=== PATIENT | male | born 1995 | race American Indian/Alaskan Native ===

== ENCOUNTER 2018-11-16 10:04 | Emergency (ER) | payer OTHER ==
[2018-11-16 10:10] VITALS: BP 137/86
--- NOTE | 2018-11-16 11:19 | Emergency Department Report ---
ED General Adult HPI - General Chief complaint: Skin Rash Stated complaint: RASH Time Seen by Provider: 11/16/18 11:18 Source: patient Mode of arrival: Ambulatory Limitations: No Limitations - History of Present Illness Initial comments: is a 23-year-old male no significant past medical history who presents with right leg rash has been going on for 2 weeks. Patient states the rash is a burning type of pain as a 9 out of 10 as achy and nothing makes it better and nothing makes it worse rash blisters. Patient is concerned that he may have shingles. Patient is unaware of these have been diagnosed with chickenpox. He states that he feels that he needs treatment for his shingles. - Related Data Previous Rx's Medication Instructions Recorded Last Taken Type Acyclovir [Zovirax Tab] 800 mg PO Q4H #60 tab 11/16/18 Unknown Rx Allergies Allergy/AdvReac Type Severity Reaction Status Date / Time No Known Allergies Allergy Unverified 11/16/18 10:05 ED Review of Systems ROS: Stated complaint: RASH Other details as noted in HPI Constitutional: denies: chills, fever Eyes: denies: eye pain, eye discharge, vision change ENT: denies: ear pain, throat pain Respiratory: denies: cough, shortness of breath, wheezing Cardiovascular: denies: chest pain, palpitations Endocrine: no symptoms reported Gastrointestinal: denies: abdominal pain, nausea, diarrhea Genitourinary: denies: urgency, dysuria Musculoskeletal: denies: back pain, joint swelling, arthralgia Skin: rash. denies: lesions Neurological: denies: headache, weakness, paresthesias Psychiatric: denies: anxiety, depression Hematological/Lymphatic: denies: easy bleeding, easy bruising ED Past Medical Hx - Past Medical History Previous Medical History?: No - Surgical History Additional Surgical History: left ankle - Medications Home Medications: Home Medications Medication Instructions Recorded Confirmed Last Taken Type Acyclovir [Zovirax Tab] 800 mg PO Q4H #60 tab 11/16/18 Unknown Rx ED Physical Exam - General Limitations: No Limitations General appearance: alert, in no apparent distress - Head Head exam: Present: atraumatic, normocephalic - Eye Eye exam: Present: normal appearance - ENT ENT exam: Present: mucous membranes moist - Neck Neck exam: Present: normal inspection - Respiratory Respiratory exam: Present: normal lung sounds bilaterally. Absent: respiratory distress - Cardiovascular Cardiovascular Exam: Present: regular rate, normal rhythm. Absent: systolic murmur, diastolic murmur, rubs, gallop - GI/Abdominal GI/Abdominal exam: Present: soft, normal bowel sounds - Rectal Rectal exam: Present: deferred - Extremities Exam Extremities exam: Present: other (vescular rash with old healed scars tender to palpation ) - Back Exam Back exam: Present: normal inspection - Neurological Exam Neurological exam: Present: alert, oriented X3 - Psychiatric Psychiatric exam: Present: normal affect, normal mood - Skin Skin exam: Present: warm, dry, intact, normal color. Absent: rash ED Course Vital Signs 11/16/18 10:09 Temperature 97.7 F Pulse Rate 84 Respiratory 20 Rate Blood Pressure 137/86 [Right] O2 Sat by Pulse 98 Oximetry ED Medical Decision Making - Medical Decision Making Cdx: Shingles rash ddx: cellulitis, viral [place] Additional verbal discharge instructions were given patient agrees with plan. Critical care attestation.: If time is entered above; I have spent that time in minutes in the direct care of this critically ill patient, excluding procedure time. ED Disposition Clinical Impression: Shingles rash Qualifiers: Herpes zoster complications: without complications Qualified Code(s): B02.9 - Zoster without complications Disposition: -01 TO HOME OR SELFCARE Is pt being admited?: No Does the pt Need Aspirin: No Condition: Stable Instructions: Herpes Zoster (ED) Prescriptions: Acyclovir [Zovirax Tab] 800 mg PO Q4H #60 tab Referrals: ELLE ESPINO MD [Staff Physician] - 3-5 Days
== END 2018-11-16 12:10 | disposition home or self-care (01) ==
LOC: ED 10:04
DX: B02.9 Zoster without complications (principal)

== ENCOUNTER 2019-08-30 15:11 | Emergency (ER) | payer SELFPAY ==
--- NOTE | 2019-08-30 15:19 | Emergency Department Report ---
Blank Doc - Documentation Documentation: 24-year-old male that presents with left eye pain and irritation x2 days. This initial assessment/diagnostic orders/clinical plan/treatment(s) is/are subject to change based on patient's health status, clinical progression and re- assessment by fellow clinical providers in the ED. Further treatment and workup at subsequent clinical providers discretion. Patient/guardians urged not to elope from the ED as their condition may be serious if not clinically assessed and managed. Initial orders include: 1- Patient sent to [facility] for further evaluation and treatment 2- visual exam 3- tonopen/raymundo lamp exam to be done
[2019-08-30 15:21] VITALS: BP 129/91
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
== END 2019-08-30 21:13 | disposition home or self-care (01) ==
LOC: ED 15:11
DX: H00.024 Hordeolum internum left upper eyelid (principal); F17.200 Nicotine dependence, unspecified, uncomplicated; F12.10 Cannabis abuse, uncomplicated; Z79.899 Other long term (current) drug therapy
CPT/HCPCS: 99282

== ENCOUNTER 2020-06-26 14:53 | Emergency (ER) | payer SELFPAY ==
[2020-06-26 15:26] VITALS: BP 139/86
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
== END 2020-06-26 16:29 | disposition home or self-care (01) ==
LOC: ED 14:53
DX: H00.036 Abscess of eyelid left eye, unspecified eyelid (principal); F17.200 Nicotine dependence, unspecified, uncomplicated; F12.10 Cannabis abuse, uncomplicated
CPT/HCPCS: 99281

== ENCOUNTER 2020-10-17 18:02 | Emergency (ER) | payer SELFPAY ==
[2020-10-17 18:09] VITALS: BP 137/80
--- NOTE | 2020-10-17 18:39 | Emergency Department Report ---
ED Rash HPI - HPI Chief Complaint: Skin Rash Stated Complaint: SPIDER BITE Time Seen by Provider: 10/17/20 18:10 Duration: 2 Days Location: Lower Extremities Rash Symptoms: No Itching, No Facial Swelling, No Tongue/Oral Swelling, No Breathing Difficulties, No Choking Sensation, No Wheezing/Dyspnea, No Peeling, No Blistering, No Fever, No Lightheaded, No Malaise, No Myalgias Severity: mild Other History: This is a 25-year-old male with no prior medical history presents ED complaining of left inner thigh pain and swelling x2 days. Patient states yesterday he noticed small bump in his left inner thigh. Patient states today he noticed it was a little bit swollen and he had some pain. Patient states that he does notice her head and thinks he got bit by a spider of some sort. Patient did not see any spider. Patient denies fever/chills/nausea vomiting or any other symptoms ED Review of Systems ROS: Stated complaint: SPIDER BITE Other details as noted in HPI Comment: All other systems reviewed and negative ED Past Medical Hx - Past Medical History Previous Medical History?: No - Surgical History Past Surgical History?: Yes Additional Surgical History: left ankle - Social History Smoking Status: Current Every Day Smoker Substance Use Type: Alcohol, Marijuana - Medications Home Medications: Home Medications Medication Instructions Recorded Confirmed Last Taken Type Acyclovir [Zovirax Tab] 800 mg PO Q4H #60 tab 11/16/18 Unknown Rx Erythromycin [Erythromycin Ophth 1 cm OU Q4H 10 Days #1 tube 08/30/19 Unknown Rx Oint] cephALEXin [Keflex] 500 mg PO Q8HR 7 Days #21 cap 06/26/20 Unknown Rx Clindamycin [Clindamycin CAP] 300 mg PO Q8H #21 cap 10/17/20 Unknown Rx Ibuprofen [Motrin 800 MG tab] 800 mg PO Q8HR PRN #21 tablet 10/17/20 Unknown Rx Rash Exam - Exam General: Vital signs noted. No distress. Alert and acting appropriately. HEENT: No Periorbital Edema, No Conjuctival Injection, No Chemosis, No Perioral Edema Lungs: Yes Good Air Exchange (Normal Breath Sounds), No Wheezes, No Ronchi, No Stridor, No Cough, No Labored Respirations, No Retractions, No Use of Accessory Muscles, No Other Abnormal Lung Sounds Heart: Yes Regular, No Murmur Skin: Yes Tenderness, Yes Other (Small 1 cm, nonfluctuant, raised lesion with the head, close, no pus drainage.), No Urticarial Rash, No Maculopapular Rash, No Morbilliform rash, No Bulla(e), No Excoriations, No Weeping, No Erythema Other: Positive: Abdomen Normal, Neurologic Normal, Musculoskeletal Normal ED Course Vital Signs 10/17/20 18:08 Temperature 98.5 F Pulse Rate 105 H Respiratory 18 Rate Blood Pressure 137/80 [Right] O2 Sat by Pulse 99 Oximetry ED Medical Decision Making - Medical Decision Making 25-year-old male presents with insect bite to the left inner thigh. Discussed antibiotic therapy. Discussed Motrin/naproxen as needed for pain. Vital signs are normal he is in no acute distress. Patient understand instructions and will follow-up. Critical care attestation.: If time is entered above; I have spent that time in minutes in the direct care of this critically ill patient, excluding procedure time. ED Disposition Clinical Impression: Insect bite Disposition: - TO HOME OR SELFCARE Is pt being admited?: No Does the pt Need Aspirin: No Condition: Stable Instructions: Insect Bite, Adult Additional Instructions: Make sure to follow up with the primary care physician as discussed. Take all your medications as you've been prescribed. If you have any worsening symptoms or develop new symptoms please return to ED immediately. Prescriptions: Clindamycin [Clindamycin CAP] 300 mg PO Q8H #21 cap Ibuprofen [Motrin 800 MG tab] 800 mg PO Q8HR PRN #21 tablet PRN Reason: pain Referrals: [facility] [Outside] - 3-5 Days [facility] [Outside] - 3-5 Days [facility] [Outside] - 3-5 Days Forms: Work/School Release Form(ED) Time of Disposition: 18:48
== END 2020-10-17 19:50 | disposition home or self-care (01) ==
LOC: ED 18:02
DX: S71.152A Open bite, left thigh, initial encounter (principal); F12.90 Cannabis use, unspecified, uncomplicated; F17.200 Nicotine dependence, unspecified, uncomplicated; Z79.899 Other long term (current) drug therapy; Z98.890 Other specified postprocedural states; W57.XXXA Bitten or stung by nonvenomous insect and other nonvenomous arthropods, initial encounter; Y93.89 Activity, other specified; Y92.89 Other specified places as the place of occurrence of the external cause; Y99.8 Other external cause status
CPT/HCPCS: 99281

== ENCOUNTER 2021-03-06 01:12 | Emergency (ER) | payer SELFPAY ==
[2021-03-06] MEDS ORDERED: IBUPROFEN 600 MG TAB PO ONE (08:35)
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
[2021-03-06 09:12] LABS: Basophils % (Auto) 0.5 % (0.0-1.8); Eosinophils # (Auto) 0.2 K/mm3 (0.0-0.4); Eosinophils % (Auto) 3.8 % (0.0-4.3); Hematocrit 42.9 % (35.5-45.6); Hemoglobin 14.9 gm/dl (11.8-15.2); Lymphocytes # (Auto) 1.8 K/mm3 (1.2-5.4); Lymphocytes % (Auto) 43.7 % (13.4-35.0); Mean Corpuscular HGB Conc 35 % (32-34); Mean Corpuscular Volume 88 fl (84-94); Monocytes # (Auto) 0.5 K/mm3 (0.0-0.8); Monocytes % (Auto) 12.9 % (0.0-7.3); Platelet Count 300 K/mm3 (140-440); Red Blood Count 4.89 M/mm3 (3.65-5.03); Red Cell Distribution Width 15.2 % (13.2-15.2)
--- NOTE | 2021-03-06 09:14 | XRay Report ---
CHEST 2 VIEWS INDICATION / CLINICAL INFORMATION: SOB. Dyspnea FINDINGS: SUPPORT DEVICES: None. HEART / MEDIASTINUM: No significant abnormality. LUNGS / PLEURA: No significant pulmonary or pleural abnormality. No pneumothorax. ADDITIONAL FINDINGS: No significant additional findings. IMPRESSION: 1. No acute findings. Signer Name: Roberto Carlos Mcdonough MD Signed: 03/06/2021 9:10 AM Workstation Name: [id number]
[2021-03-06 09:31] LABS: Bacteria,Urine 1+ /HPF (Negative); Bilirubin,Urine NEG (Negative); Blood,Urine NEG (Negative); Color,Urine Yellow (Yellow); Mucus,Urine FEW /HPF; Protein,Urine <15 mg/dL mg/dL (Negative); Urobilinogen,Urine < 2.0 mg/dL (<2.0)
[2021-03-06 09:37] LABS: Benzodiazepines Screen,Urine Negative; Cannabinoid Screen,Urine Negative; Cocaine Screen,Urine Negative; Methadone Screen,Urine Negative; Opiate Screen,Urine Negative
[2021-03-06 10:13] VITALS: BP 124/89
[2021-03-06 10:13] LABS: Alanine Aminotransferase 20 units/L (7-56); Albumin 4.7 g/dL (3.9-5); BUN/Creatinine Ratio 9; Blood Urea Nitrogen 8 mg/dL (9-20); Calcium 10.5 mg/dL (8.4-10.2); Hemolysis Index 6
[2021-03-06 10:15] LABS: Amphetamine Screen,Urine PRESUMPTIVE POSITIVE
--- NOTE | 2021-03-07 10:17 | Electrocardiograph Report ---
[facility] Test Date: 2021-03-06 Test Time: 10:06:18 Pat Name: ANIA LINDSEY Department: Room: Gender: M Evening Anchor: FARZANA : 1995 Requested By: ACE HALL Order Number: [id number] Reading MD: Camden Dugan Measurements Intervals [place] Rate: 67 P: 46 SD: 200 QRS: 45 QRSD: 96 T: 21 QT: 389 QTc: 411 Interpretive Statements Sinus rhythm Consider anteroseptal infarct No previous ECG available for comparison Electronically Signed On 03-07-2021 10:16:56 EDT by Camden Dugan
== END 2021-03-06 10:43 | disposition home or self-care (01) ==
LOC: ED 01:12
DX: R07.9 Chest pain, unspecified (principal); R06.02 Shortness of breath; R53.1 Weakness; I10 Essential (primary) hypertension; F19.10 Other psychoactive substance abuse, uncomplicated
CPT/HCPCS: 36415; 71046; 80053; 80307; 81001; 82550; 83735; 84484; 85025; 93005; 99284

== ENCOUNTER 2021-05-09 17:12 | Emergency (ER) | payer SELFPAY ==
[2021-05-09 21:00] VITALS: BP 146/91
--- NOTE | 2021-05-09 21:07 | Emergency Department Report ---
ED General Adult HPI - General Chief complaint: Dental/Oral Stated complaint: TOOTH PAIN Time Seen by Provider: 05/09/21 20:59 Source: patient Mode of arrival: Ambulatory Limitations: No Limitations - History of Present Illness Initial comments: 26-year-old male patient presents to the emergency department with complaints of dental pain for 2 weeks. No preceding fall, trauma, or injury. Pain is localized to the left upper molar. He has been taking Motrin for pain. He has not been evaluated by a dentist. He is not currently scheduled to see a den tist. Symptoms are unchanged today. Denies fever, chills, dysphagia, shortness of breath, voice changes, facial swelling. Denies all other complaints at this time. - Related Data Previous Rx's Medication Instructions Recorded Last Taken Type Acyclovir [Zovirax Tab] 800 mg PO Q4H #60 tab 11/16/18 Unknown Rx Erythromycin [Erythromycin Ophth 1 cm OU Q4H 10 Days #1 tube 08/30/19 Unknown Rx Oint] cephALEXin [Keflex] 500 mg PO Q8HR 7 Days #21 cap 06/26/20 Unknown Rx Clindamycin [Clindamycin CAP] 300 mg PO Q8H #21 cap 10/17/20 Unknown Rx Ibuprofen [Motrin 800 MG tab] 800 mg PO Q8HR PRN #21 tablet 03/06/21 Unknown Rx Naproxen 500 mg PO BID #20 tablet 05/09/21 Unknown Rx Penicillin Vk [Veetids TAB] 500 mg PO QID 7 Days tablet 05/09/21 Unknown Rx Allergies Allergy/AdvReac Type Severity Reaction Status Date / Time No Known Allergies Allergy Verified 06/26/20 15:23 ED Review of Systems ROS: Stated complaint: TOOTH PAIN Other details as noted in HPI Other: GENERAL: Negative for fever. ENT: Positive for dental pain. CARDIOVASCULAR: Negative for chest pain. PULMONARY: Negative for shortness of breath. GASTROINTESTINAL: Negative for abdominal pain. MUSCULOSKELETAL: Negative for back pain. NEUROLOGICAL: Negative for headache. INTEGUMENTARY: Negative for rash. ED Past Medical Hx - Past Medical History Hx Hypertension: Yes - Surgical History Additional Surgical History: left ankle - Social History Smoking Status: Never Smoker Substance Use Type: None - Medications Home Medications: Home Medications Medication Instructions Recorded Confirmed Last Taken Type Acyclovir [Zovirax Tab] 800 mg PO Q4H #60 tab 11/16/18 Unknown Rx Erythromycin [Erythromycin Ophth 1 cm OU Q4H 10 Days #1 tube 08/30/19 Unknown Rx Oint] cephALEXin [Keflex] 500 mg PO Q8HR 7 Days #21 cap 06/26/20 Unknown Rx Clindamycin [Clindamycin CAP] 300 mg PO Q8H #21 cap 10/17/20 Unknown Rx Ibuprofen [Motrin 800 MG tab] 800 mg PO Q8HR PRN #21 tablet 03/06/21 Unknown Rx Naproxen 500 mg PO BID #20 tablet 05/09/21 Unknown Rx Penicillin Vk [Veetids TAB] 500 mg PO QID 7 Days tablet 05/09/21 Unknown Rx ED Physical Exam - General Limitations: No Limitations - Other Other exam information: General: Awake, appropriately interactive, no acute distress. Dental: Tenderness to palpation along left upper molar with minimal decay. Multiple dental caries. Oral mucosa is moist. The gingiva appear normal. No fluctuance or evidence of periapical abscess. Sublingual, submental, and submandibular spaces all soft, without edema. No evidence for maxillary or buccal space abscess. No trismus. Patient is speaking in full sentences and handling secretions without difficulty. Neck: Supple. Full range of motion intact. Cardiovascular: Normal peripheral perfusion. Pulmonary: No respiratory distress. Patient is speaking normally without use of accessory muscles. Skin: No apparent rashes or lesions. Neurological: No facial asymmetry. Speech is clear. Follows commands. Patient is alert and oriented. Musculoskeletal: Moves all four extremities spontaneously with normal range of motion. Psych: Cooperative. Appropriate mood and affect. ED Course Vital Signs 05/09/21 20:59 Temperature 98.6 F Pulse Rate 96 H Respiratory 20 Rate Blood Pressure 146/91 O2 Sat by Pulse 97 Oximetry ED Medical Decision Making - Medical Decision Making Differential diagnosis including but not limited to: dental abscess, Dakotah's angina, necrotizing gingivitis, dental caries Patient presents to the emergency department with complaints of ongoing dental pain for 2 weeks, unchanged today. He is afebrile, hemodynamically stable, no respiratory distress, speaking and handling secretions without difficulty. No clinical evidence to suggest airway obstruction or systemic infection warranting further diagnostic work-up on an emergent basis at this time. Patient will be discharged home with appropriate analgesics, short course of prophylactic antibiotics, and referred to dentist for close outpatient follow-up. Patient expressed understanding and is agreeable to plan of care. Strict return precautions provided. History, exam, diagnostic testing, and current condition do not suggest worrisome pathology to warrant further testing, continued ED treatment, admission, or surgical evaluation at this point. Given the low probability of a significant medical illness, it would be more likely to result in harm than benefit to perform further testing at this stage. Discussed findings, presumptive diagnosis, need for follow-up and specific signs/symptoms that should prompt immediate return to the emergency department. Instructions were explained in detail to the patient in addition to giving written discharge information. Patient expressed understanding and was given the opportunity to ask questions, all of which were satisfactorily answered prior to discharge home. BILLING/CODING: This patient encounter does not represent a certified medical emergency. Critical care attestation.: If time is entered above; I have spent that time in minutes in the direct care of this critically ill patient, excluding procedure time. ED Disposition Clinical Impression: Odontalgia Disposition: 01 HOME / SELF CARE / HOMELESS Is pt being admited?: No Does the pt Need Aspirin: No Condition: Stable Instructions: Diet and Dental Disease Additional Instructions: Take Tylenol every 4 hours as needed for pain. Take Naprosyn twice daily with food as needed for pain. Take Penicillin with food as directed. You must follow-up with a dentist for definitive management of ongoing dental pain. Call tomorrow to schedule an appointment. See referral information below. Return to the emergency department immediately for new or worsening symptoms. Specifically, return to the emergency department immediately for fever, worsening pain, difficulty swallowing, difficulty breathing, difficulty speaking, or any other concerns. Prescriptions: Naproxen 500 mg PO BID #20 tablet Penicillin Vk [Veetids TAB] 500 mg PO QID 7 Days tablet Referrals: [facility] [Outside] - 3-5 Days [facility] [Outside] - 3-5 Days Time of Disposition: 21:08
== END 2021-05-09 21:30 | disposition home or self-care (01) ==
LOC: ED 17:12
DX: K08.89 Other specified disorders of teeth and supporting structures (principal); I10 Essential (primary) hypertension
CPT/HCPCS: 99282

== ENCOUNTER 2022-01-30 19:04 | Emergency (ER) | payer SELFPAY ==
[2022-01-31] MEDS ORDERED: IBUPROFEN 800 MG TAB PO ONE (03:59)
[2022-01-31] MEDS ORDERED: AMOXICILLIN 500 MG CAP PO ONE (03:59)
--- NOTE | 2022-01-31 04:30 | Emergency Department Report ---
ED General Adult HPI - General Chief complaint: Dental/Oral Stated complaint: TOOTHACHE Time Seen by Provider: 01/31/22 03:56 Source: patient Mode of arrival: Ambulatory Limitations: No Limitations - History of Present Illness Initial comments: Patient 26-year-old male who presents for dental pain x3 days. Patient has chronic history of dental caries. There is no fevers no chills no facial or gum swelling. There is no nausea no vomiting no ear or throat pain. Dental pain is rated at 5/10 sharp and achy. Pain is exacerbated by hot and cold stimuli. Pain is relieved by nothing tried. Patient advises he does not have a dentist. - Related Data Previous Rx's Medication Instructions Recorded Last Taken Type Acyclovir [Zovirax Tab] 800 mg PO Q4H #60 tab 11/16/18 Unknown Rx Erythromycin [Erythromycin Ophth 1 cm OU Q4H 10 Days #1 tube 08/30/19 Unknown Rx Oint] cephALEXin [Keflex] 500 mg PO Q8HR 7 Days #21 cap 06/26/20 Unknown Rx Clindamycin [Clindamycin CAP] 300 mg PO Q8H #21 cap 10/17/20 Unknown Rx Ibuprofen [Motrin 800 MG tab] 800 mg PO Q8HR PRN #21 tablet 03/06/21 Unknown Rx Naproxen 500 mg PO BID #20 tablet 05/09/21 Unknown Rx Penicillin Vk [Veetids TAB] 500 mg PO QID 7 Days tablet 05/09/21 Unknown Rx Amoxicillin [Trimox CAP] 500 mg PO Q8H 7 Days #21 capsule 01/31/22 Unknown Rx Ibuprofen [Motrin 800 MG tab] 800 mg PO Q8HR PRN #30 tablet 01/31/22 Unknown Rx Allergies Allergy/AdvReac Type Severity Reaction Status Date / Time No Known Allergies Allergy Verified 06/26/20 15:23 ED Review of Systems ROS: Stated complaint: TOOTHACHE Other details as noted in HPI Constitutional: denies: chills, fever Eyes: denies: eye pain, eye discharge, vision change ENT: dental pain. denies: ear pain, throat pain Respiratory: denies: cough, shortness of breath, wheezing Cardiovascular: denies: chest pain, palpitations Endocrine: no symptoms reported Gastrointestinal: denies: abdominal pain, nausea, vomiting, diarrhea Genitourinary: denies: urgency, dysuria Musculoskeletal: denies: back pain, joint swelling, arthralgia Skin: denies: rash, lesions Neurological: denies: headache, weakness, paresthesias Psychiatric: denies: anxiety, depression Hematological/Lymphatic: denies: easy bleeding, easy bruising ED Past Medical Hx - Past Medical History Hx Hypertension: Yes - Surgical History Additional Surgical History: left ankle - Social History Smoking Status: Never Smoker Substance Use Type: None - Medications Home Medications: Home Medications Medication Instructions Recorded Confirmed Last Taken Type Acyclovir [Zovirax Tab] 800 mg PO Q4H #60 tab 11/16/18 Unknown Rx Erythromycin [Erythromycin Ophth 1 cm OU Q4H 10 Days #1 tube 08/30/19 Unknown Rx Oint] cephALEXin [Keflex] 500 mg PO Q8HR 7 Days #21 cap 06/26/20 Unknown Rx Clindamycin [Clindamycin CAP] 300 mg PO Q8H #21 cap 10/17/20 Unknown Rx Ibuprofen [Motrin 800 MG tab] 800 mg PO Q8HR PRN #21 tablet 03/06/21 Unknown Rx Naproxen 500 mg PO BID #20 tablet 05/09/21 Unknown Rx Penicillin Vk [Veetids TAB] 500 mg PO QID 7 Days tablet 05/09/21 Unknown Rx Amoxicillin [Trimox CAP] 500 mg PO Q8H 7 Days #21 capsule 01/31/22 Unknown Rx Ibuprofen [Motrin 800 MG tab] 800 mg PO Q8HR PRN #30 tablet 01/31/22 Unknown Rx ED Physical Exam - General Limitations: No Limitations General appearance: alert - Head Head exam: Present: normocephalic, normal inspection - Eye Eye exam: Present: EOMI. Absent: conjunctival injection, nystagmus Pupils: Present: normal accommodation - ENT ENT exam: Present: mucous membranes moist, TM's normal bilaterally, normal external ear exam - Expanded ENT Exam Expanded Ear exam: Present: normal external inspection Teeth exam: Present: dental caries, fractured tooth # (16 mild erythema no gum swelling no facial swelling no focal abscess) Throat exam: Positive: other (Uvula midline airways patent no exudate no lesions). Negative: tonsillar erythema, tonsillomegaly, tonsillar exudate - Neck Neck exam: Present: normal inspection, full ROM. Absent: tenderness, lymphadenopathy - Respiratory Respiratory exam: Present: normal lung sounds bilaterally. Absent: respiratory distress, wheezes - Cardiovascular Cardiovascular Exam: Present: regular rate, normal rhythm, normal heart sounds. Absent: systolic murmur, diastolic murmur, rubs, gallop - GI/Abdominal GI/Abdominal exam: Present: soft, normal bowel sounds. Absent: distended, tenderness - Rectal Rectal exam: Present: deferred - Extremities Exam Extremities exam: Present: normal inspection, full ROM. Absent: tenderness - Back Exam Back exam: Present: normal inspection, full ROM. Absent: CVA tenderness (R), CVA tenderness (L) - Neurological Exam Neurological exam: Present: alert, oriented X3, CN II-XII intact - Expanded Neurological Exam Expanded Patient oriented to: Present: person, place, time Speech: Present: fluid speech Best Eye Response (Heidi): (4) open spontaneously Best Motor Response ([place]): (6) obeys commands Best Verbal Response (Heidi): (5) oriented [place] Total: 15 - Psychiatric Psychiatric exam: Present: normal affect, normal mood - Skin Skin exam: Present: warm, dry, intact, normal color. Absent: rash ED Course Vital Signs 01/30/22 19:04 Temperature 98.5 F Pulse Rate 92 H Respiratory 18 Rate Blood Pressure 130/88 [Right] O2 Sat by Pulse 98 Oximetry ED Medical Decision Making - Medical Decision Making This is straightforward infected dental caries plan DC to home with prescript ions. Follow-up with [facility] dental in 1 to 2 days. Return to emergency department should symptoms worsen. Patient verbalized agreement and understanding with discharge plan. Patient DC'd home in stable condition at this time. Critical care attestation.: If time is entered above; I have spent that time in minutes in the direct care of this critically ill patient, excluding procedure time. ED Disposition Clinical Impression: Dental caries Disposition: HOME / SELF CARE / HOMELESS Is pt being admited?: No Does the pt Need Aspirin: No Condition: Stable Instructions: Preventive Dental Care, Adult Additional Instructions: Take medications as prescribed, follow-up with your dentist in 2 to 3 days. Prescriptions: Ibuprofen [Motrin 800 MG tab] 800 mg PO Q8HR PRN #30 tablet PRN Reason: Pain Amoxicillin [Trimox CAP] 500 mg PO Q8H 7 Days #21 capsule Referrals: [facility] [Outside] - 3-5 Days [facility] [Provider Group] - 3-5 Days Forms: Work/School Release Form(ED) Time of Disposition: 04:35
[2022-01-31 05:06] VITALS: BP 116/74
== END 2022-01-31 05:03 | disposition home or self-care (01) ==
LOC: ED 19:04
DX: K02.9 Dental caries, unspecified (principal); I10 Essential (primary) hypertension; Z79.899 Other long term (current) drug therapy
CPT/HCPCS: 99282

== ENCOUNTER 2022-03-03 15:28 | Emergency (ER) | payer SELFPAY ==
[2022-03-03 17:49] VITALS: BP 126/77
--- NOTE | 2022-03-03 19:54 | XRay Report ---
CHEST 2 VIEWS INDICATION / CLINICAL INFORMATION: Chest pain and shortness of breath. COMPARISON: 03/06/21. FINDINGS: SUPPORT DEVICES: None. HEART / MEDIASTINUM: The heart size and pulmonary vasculature are normal. The aorta is normal in mickey juan jose. LUNGS / PLEURA: No significant pulmonary or pleural abnormality. No pneumothorax. ADDITIONAL FINDINGS: No significant additional findings. IMPRESSION: No acute abnormality or significant change. Signer Name: Ky Duncan MD Signed: 03/03/2022 7:49 PM Workstation Name: [id number]
--- NOTE | 2022-03-03 20:59 | Emergency Department Report ---
Minor Respiratory - HPI Chief Complaint: Upper Respiratory Infection Stated Complaint: SHORTNESS OF BREATH/CHEST PAIN Time Seen by Provider: 03/03/22 17:46 Duration: 3 Days Pain Location: Nose, Chest Severity: mild, moderate Minor Respiratory: Yes Rhinorrhea, Yes Able to Tolerate Fluids, Yes Cough, Yes Sick Contacts, No Sore Throat, No Ear Pain, No Hemoptysis, No Chest Pain, No Shortness of Breath, No Fever Other History: 26-year-old male just emerged from complaining of cough congestion coryza and possible contact with an infectious source presents emerged department seeking evaluation for his symptoms. Reports hemoptysis hematemesis and hematochezia, no nausea, no vomiting. ED Review of Systems ROS: Stated complaint: SHORTNESS OF BREATH/CHEST PAIN Other details as noted in HPI Comment: All other systems reviewed and negative ED Past Medical Hx - Past Medical History Previous Medical History?: No Hx Hypertension: Yes - Surgical History Additional Surgical History: left ankle, hernia repair - Social History Smoking Status: Never Smoker Substance Use Type: None - Medications Home Medications: Home Medications Medication Instructions Recorded Confirmed Last Taken Type Acyclovir [Zovirax Tab] 800 mg PO Q4H #60 tab 11/16/18 Unknown Rx Erythromycin [Erythromycin Ophth 1 cm OU Q4H 10 Days #1 tube 08/30/19 Unknown Rx Oint] cephALEXin [Keflex] 500 mg PO Q8HR 7 Days #21 cap 06/26/20 Unknown Rx Clindamycin [Clindamycin CAP] 300 mg PO Q8H #21 cap 10/17/20 Unknown Rx Ibuprofen [Motrin 800 MG tab] 800 mg PO Q8HR PRN #21 tablet 03/06/21 Unknown Rx Naproxen 500 mg PO BID #20 tablet 05/09/21 Unknown Rx Penicillin Vk [Veetids TAB] 500 mg PO QID 7 Days tablet 05/09/21 Unknown Rx Amoxicillin [Trimox CAP] 500 mg PO Q8H 7 Days #21 capsule 01/31/22 Unknown Rx Ibuprofen [Motrin 800 MG tab] 800 mg PO Q8HR PRN #30 tablet 01/31/22 Unknown Rx Albuterol Mdi (or & Nicu Only) 2 puff IH QID PRN #8.5 gram 03/03/22 Unknown Rx [ProAir HFA Inhaler] Benzonatate [Tessalon Perles] 100 mg PO Q8HR #20 cap 03/03/22 Unknown Rx Minor Respiratory Exam - Exam General: Vital signs noted. No distress. Alert and acting appropriately. HEENT: Yes Moist Mucous Membranes, No Pharyngeal Erythema, No Pharyngeal Exudates, No Rhinorrhea, No Conjuctival Injection, No Frontal Tenderness, No Maxillary Tenderness Ear: Neither TM Bulge, Neither TM Erythema, Neither EAC Pain, Neither EAC Discharge Neck: Yes Supple, No Adenopathy Lungs: Yes Good Air Exchange, Yes Cough, No Wheezes, No Ronchi, No Stridor, No Labored Respirations, No Retractions, No Use of Accessory Muscles, No Other Abnormal Lung Sounds Heart: Yes Regular, No Murmur Abdomen: Yes Normal Bowel Sounds, No Tenderness, No Peritoneal Signs Skin: No Rash, No Edema Neurologic: Alert and oriented, no deficits. Musculoskeletal: Unremarkable. ED Course Vital Signs 03/03/22 17:41 Temperature 98.6 F Pulse Rate 81 Respiratory 18 Rate Blood Pressure 126/77 [Left] O2 Sat by Pulse 98 Oximetry ED Medical Decision Making - Radiology Data Radiology results: report reviewed [facility] [address] [place] [address] XRay Report Signed Patient: ANIA LINDSEY JR MR#: [id number] : 1995 Acct:[id number] Age/Sex: 26 / M ADM Date: 03/03/22 Loc: ED Attending Dr: Ordering Physician: RYLEE MONTALVO Date of Service: 03/03/22 Procedure(s): XR chest routine 2V Accession Number(s): [id number] cc: RYLEE MONTALVO Fluoro Time In Minutes: CHEST 2 VIEWS INDICATION / CLINICAL INFORMATION: Chest pain and shortness of breath. COMPARISON: 03/06/21. FINDINGS: SUPPORT DEVICES: None. HEART / MEDIASTINUM: The heart size and pulmonary vasculature are normal. The aorta is normal in caliber. LUNGS / PLEURA: No significant pulmonary or pleural abnormality. No pneumothorax. ADDITIONAL FINDINGS: No significant additional findings. IMPRESSION: No acute abnormality or significant change. Signer Name: Ky Duncan MD Signed: 03/03/2022 7:49 PM Workstation Name: [id number] Transcribed By: RT Dictated By: Ky Duncan MD Electronically Authenticated By: Ky Duncan MD Signed Date/Time: 03/03/221948 DD/ 48 TD/TT: Print - Medical Decision Making This 26-year-old male patient presents with symptoms suspicious for likely viral upper respiratory tract infection. Differential includes bacterial pneumonia, sinusitis, allergic rhinitis, COVID-19. Do not suspect underlying Cardiopulmonary process. I considered but think unlikely dangerous cause of this patient symptoms to include acute coronary syndrome, CHF or COPD exacerbations, pneumonia, pneumothorax. Patient is nontoxic appearing and not in need of emergent medical intervention. Plan: Reassurance, reassessment, [id number] medications, discharge with PCP follow-up this patient presents with acute cough, most consistent with upper associated infection/COVID-19. Differential diagnosis includes pneumonia, asthma, hyperreactive airway disease, bacterial infection. Presentation not consistent with acute bacterial pneumonia, influenza, asthma, transient airway hyperresponsiveness. Presentation not consistent with chronic causes of cough ( including GERD, asthma, postnasal discharge, medication side effect, CHF, lung cancer or mass). Plan: CXR, supportive care, reassess Critical care attestation.: If time is entered above; I have spent that time in minutes in the direct care of this critically ill patient, excluding procedure time. ED Disposition Clinical Impression: Cough, URI (upper respiratory infection) Disposition: 01 HOME / SELF CARE / HOMELESS Is pt being admited?: No Does the pt Need Aspirin: No Condition: Stable Instructions: Cool Mist Vaporizer, Cough, Adult, [id number], Upper Respiratory Infection, Adult Prescriptions: Albuterol Mdi (or & Nicu Only) [ProAir HFA Inhaler] 2 puff IH QID PRN #8.5 gram PRN Reason: Shortness Of Breath Benzonatate [Tessalon Perles] 100 mg PO Q8HR #20 cap Referrals: [facility] [Provider Group] - 3-5 Days
--- NOTE | 2022-03-05 10:01 | Electrocardiograph Report ---
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
== END 2022-03-03 21:43 | disposition home or self-care (01) ==
LOC: ED 15:28
DX: J06.9 Acute upper respiratory infection, unspecified (principal); I10 Essential (primary) hypertension; Z79.899 Other long term (current) drug therapy
CPT/HCPCS: 71046; 93005; 99283

== ENCOUNTER 2022-03-11 01:12 | Emergency (ER) | payer SELFPAY ==
--- NOTE | 2022-03-11 02:31 | XRay Report ---
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 COMPARISON: 2 views of the chest from 03/03/2022. FINDINGS: SUPPORT DEVICES: None. HEART / MEDIASTINUM: No significant abnormality. LUNGS / PLEURA: No significant pulmonary abnormality. No significant pleural effusion. No pneumothora x. ADDITIONAL FINDINGS: No significant additional findings. IMPRESSION: 1. No acute abnormality of the chest. Signer Name: Fitz Nuñez MD Signed: 03/11/2022 2:27 AM Workstation Name: [id number]
--- NOTE | 2022-03-11 06:33 | Emergency Department Report ---
ED Chest Pain HPI - General Chief Complaint: Upper Respiratory Infection Stated Complaint: PANIC ATTACK/ANXIETY Time Seen by Provider: 03/11/22 06:27 Source: patient, family Mode of arrival: Stretcher Limitations: No Limitations - History of Present Illness Initial Comments: Patient is a 26-year-old male presented ED with complaint of squeezing retroste rnal chest pain intermittently for the past week. States he has been here roughly a week ago and also at [facility] a few days ago for evaluation and was told he was having likely panic attacks. He endorses mild pain currently. There are no modifying factors. Severity scale (0 -10): 0 - Related Data Previous Rx's Medication Instructions Recorded Last Taken Type Acyclovir [Zovirax Tab] 800 mg PO Q4H #60 tab 11/16/18 Unknown Rx Erythromycin [Erythromycin Ophth 1 cm OU Q4H 10 Days #1 tube 08/30/19 Unknown Rx Oint] cephALEXin [Keflex] 500 mg PO Q8HR 7 Days #21 cap 06/26/20 Unknown Rx Clindamycin [Clindamycin CAP] 300 mg PO Q8H #21 cap 10/17/20 Unknown Rx Ibuprofen [Motrin 800 MG tab] 800 mg PO Q8HR PRN #21 tablet 03/06/21 Unknown Rx Naproxen 500 mg PO BID #20 tablet 05/09/21 Unknown Rx Penicillin Vk [Veetids TAB] 500 mg PO QID 7 Days tablet 05/09/21 Unknown Rx Amoxicillin [Trimox CAP] 500 mg PO Q8H 7 Days #21 capsule 01/31/22 Unknown Rx Ibuprofen [Motrin 800 MG tab] 800 mg PO Q8HR PRN #30 tablet 01/31/22 Unknown Rx Albuterol Mdi (or & Nicu Only) 2 puff IH QID PRN #8.5 gram 03/03/22 Unknown Rx [ProAir HFA Inhaler] Benzonatate [Tessalon Perles] 100 mg PO Q8HR #20 cap 03/03/22 Unknown Rx Allergies Allergy/AdvReac Type Severity Reaction Status Date / Time No Known Allergies Allergy Verified 06/26/20 15:23 Heart Score - HEART Score History: Slightly suspicious EKG: Normal Age: < 45 Risk factors: No known risk factors Troponin: < normal limit HEART Score: 0 - EKG Read Time Time EKG Completed: 07:24 EKG Read Time: 07:31 - Critical Actions Critical Actions: 0-3 pts:0.9-1.7%risk of adverse cardiac event.Candidate for discharge ED Review of Systems ROS: Stated complaint: PANIC ATTACK/ANXIETY Other details as noted in HPI Constitutional: denies: chills, fever Respiratory: denies: cough, shortness of breath, wheezing Cardiovascular: chest pain Endocrine: no symptoms reported Gastrointestinal: denies: abdominal pain, nausea, diarrhea Genitourinary: denies: urgency, dysuria Musculoskeletal: denies: back pain, joint swelling, arthralgia Skin: denies: rash, lesions Neurological: denies: headache, weakness, paresthesias Psychiatric: anxiety ED Past Medical Hx - Past Medical History Previous Medical History?: Yes Hx Hypertension: Yes Hx Psychiatric Treatment: Yes (Anxiety) - Surgical History Past Surgical History?: Yes Additional Surgical History: left ankle, hernia repair - Social History Smoking Status: Never Smoker Substance Use Type: None - Medications Home Medications: Home Medications Medication Instructions Recorded Confirmed Last Taken Type Acyclovir [Zovirax Tab] 800 mg PO Q4H #60 tab 11/16/18 Unknown Rx Erythromycin [Erythromycin Ophth 1 cm OU Q4H 10 Days #1 tube 08/30/19 Unknown Rx Oint] cephALEXin [Keflex] 500 mg PO Q8HR 7 Days #21 cap 06/26/20 Unknown Rx Clindamycin [Clindamycin CAP] 300 mg PO Q8H #21 cap 10/17/20 Unknown Rx Ibuprofen [Motrin 800 MG tab] 800 mg PO Q8HR PRN #21 tablet 03/06/21 Unknown Rx Naproxen 500 mg PO BID #20 tablet 05/09/21 Unknown Rx Penicillin Vk [Veetids TAB] 500 mg PO QID 7 Days tablet 05/09/21 Unknown Rx Amoxicillin [Trimox CAP] 500 mg PO Q8H 7 Days #21 capsule 01/31/22 Unknown Rx Ibuprofen [Motrin 800 MG tab] 800 mg PO Q8HR PRN #30 tablet 01/31/22 Unknown Rx Albuterol Mdi (or & Nicu Only) 2 puff IH QID PRN #8.5 gram 03/03/22 Unknown Rx [ProAir HFA Inhaler] Benzonatate [Tessalon Perles] 100 mg PO Q8HR #20 cap 03/03/22 Unknown Rx ED Physical Exam - General Limitations: No Limitations General appearance: alert, in no apparent distress - Head Head exam: Present: atraumatic, normocephalic - Respiratory Respiratory exam: Present: normal lung sounds bilaterally. Absent: respiratory distress - Cardiovascular Cardiovascular Exam: Present: regular rate, normal rhythm, normal heart sounds - GI/Abdominal GI/Abdominal exam: Present: soft. Absent: distended, tenderness - Rectal Rectal exam: Present: deferred - Neurological Exam Neurological exam: Present: alert, oriented X3 - Psychiatric Psychiatric exam: Present: normal affect, normal mood - Skin Skin exam: Present: warm, dry, intact, normal color ED Course Vital Signs 03/11/22 01:13 Temperature 98.6 F Pulse Rate 84 Respiratory 18 Rate Blood Pressure 140/90 O2 Sat by Pulse 100 Oximetry ED Medical Decision Making - Lab Data Result diagrams: 03/11/22 06:37 03/11/22 06:37 - Medical Decision Making Chest x-ray and EKG are normal. CBC CMP and troponin are unremarkable. Heart score 0. Patient stable for discharge with return precautions. Critical care attestation.: If time is entered above; I have spent that time in minutes in the direct care of this critically ill patient, excluding procedure time. ED Disposition Clinical Impression: Nonspecific chest pain Disposition: 01 HOME / SELF CARE / HOMELESS Is pt being admited?: No Condition: Stable Instructions: Nonspecific Chest Pain, Adult Time of Disposition: 07:44
[2022-03-11 07:28] LABS: Blood Urea Nitrogen 8 mg/dL (9-20); Calcium 9.5 mg/dL (8.4-10.2); Hemolysis Index 1
[2022-03-11 07:31] LABS: Basophils % (Auto) 0.3 % (0.0-1.8); Eosinophils # (Auto) 0.1 K/mm3 (0.0-0.4); Hematocrit 41.7 % (35.5-45.6); Lymphocytes # (Auto) 2.1 K/mm3 (1.2-5.4); Lymphocytes % (Auto) 45.1 % (13.4-35.0); Mean Corpuscular HGB Conc 34 % (32-34); Mean Corpuscular Volume 87 fl (84-94); Monocytes # (Auto) 0.4 K/mm3 (0.0-0.8); Monocytes % (Auto) 9.1 % (0.0-7.3); Platelet Count 277 K/mm3 (140-440); Red Blood Count 4.81 M/mm3 (3.65-5.03); Red Cell Distribution Width 14.9 % (13.2-15.2)
[2022-03-11 07:32] LABS: BUN/Creatinine Ratio 11
[2022-03-11 07:45] VITALS: BP 111/68
--- NOTE | 2022-03-11 10:43 | Electrocardiograph Report ---
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
== END 2022-03-11 07:55 | disposition home or self-care (01) ==
LOC: ED 01:12
DX: R07.89 Other chest pain (principal); I10 Essential (primary) hypertension; F41.9 Anxiety disorder, unspecified; Z79.899 Other long term (current) drug therapy
CPT/HCPCS: 36415; 71046; 80048; 84484; 85025; 93005; 99284